=== PATIENT | female | born 1955 | race Caucasian/White ===

== ENCOUNTER → 2024-03-10 13:50 | Outpatient (CLI) | payer MEDICARE, SELFPAY ==
[2024-03-10 14:52] LABS: Add Manual Diff / Slide Review NO; Basophils Absolute Auto 100 /uL (0-100); Basophils Percent Auto 1.4 % (0-2); Eosinophils Absolute Auto 300 /uL (0-450); Eosinophils Percent Auto 4.2 % (2-4); Hemoglobin 15.1 g/dL (12.0-16.0); Lymphocytes Absolute Auto 1900 /uL (1100-4500); Lymphocytes Percent Auto 23.4 % (25-40); Mean Corpuscular HGB Conc 34.2 % (30-36); Mean Corpuscular Hemoglobin 32.1 PG (26-34); Mean Corpuscular Volume 93.9 fL (80-100); Monocytes Absolute Auto 500 /uL (0-900); Monocytes Percent Auto 6.2 % (3-14); Neutrophils Absolute Auto 5200 /uL (1500-7000); Neutrophils Percent Auto 64.8 % (50-75); Platelet Count 334 X10^3/uL (150-400); Red Blood Cell Count 4.69 X10^6/uL (4.0-5.2); Red Cell Distribution Width 13.4 % (11.6-14.8)
[2024-03-10 15:17] LABS: Alanine Aminotransferase 23 IU/L (<35); Albumin 4.7 g/dL (3.5-5.0); Albumin Globulin Ratio 1.8 (1.0-2.8); Alkaline Phosphatase 88 U/L (38-126); Aspartate Aminotransferase 22 IU/L (14-36); Bilirubin Total 0.7 mg/dL (0.2-1.3); Blood Urea Nitrogen 11 mg/dL (7-17); Calcium 9.7 mg/dL (8.4-10.2); Carbon Dioxide 33 mmol/L (22-32); Chloride 106 mmol/L (98-107); Cholesterol 210 mg/dL (140-199); Estimated Glomerular Filt Rate > 60 mL/min (>60); Globulin 2.6 g/dL (1.7-4.1); Glucose 98 mg/dL (80-110); HDL Cholesterol 88 mg/dL (40-60); HEMOLYSIS < 15 (0-50); LDL Cholesterol Calculated 97 mg/dL (<100); Potassium 3.6 mmol/L (3.4-5.1); Sodium 142 mmol/L (137-145); Total Protein 7.3 g/dL (6.3-8.2); Triglycerides 127 mg/dL (35-150)
[2024-03-10 15:48] LABS: TSH w/ Reflex to FT4 1.94 uIU/mL (0.47-4.68)
== END ==
LOC: LAB 13:51
PROVIDERS: Family Provider Family Medicine; PCP Family Medicine; Referring Provider Family Medicine; Visit Provider Family Medicine
DX: I10 Essential (primary) hypertension (principal); J44.9 Chronic obstructive pulmonary disease, unspecified
CPT/HCPCS: 36415; 80053; 80061; 84443; 85025

== ENCOUNTER → 2024-04-02 14:47 | Outpatient (CLI) | payer MEDICARE, SELFPAY ==
--- NOTE | 2024-04-02 14:48 | DI.CT.S_ITS ---
PROCEDURE: CT LUNG LOW DOSE SCREENING INDICATIONS: nicotine dependence TECHNIQUE: Noncontrast 2.0-2.5 mm thick sections acquired from the pulmonary apices to the posterior costophrenic angles. 7 mm thick axial MIP, and 5 mm coronal and sagittal reformats were then acquired. For radiation dose reduction, the following was used: automated exposure control, adjustment of mA and/or kV according to patient size. COMPARISON: None. FINDINGS: Image quality: Diagnostic. Lower Neck: No enlarged lymph nodes. Thyroid: No thyroid nodules which require sonographic follow up, per consensus guidelines. Axillae: No enlarged lymph nodes. Chest Wall: Unremarkable. Bones: Unremarkable. Lungs and Pleura: No pneumothorax or pleural effusions. -Right upper lobe pulmonary nodule measuring 0.6 cm, (3/64). -Right middle lobe pulmonary nodule measuring 0.6 cm, (3/185). -Right lower lobe pulmonary nodule measuring 0.6 cm, (3/179). -Left upper lobe pulmonary nodule measuring 0.6 cm, (3/189). -Left upper lobe ground-glass pulmonary nodule measuring 0.9 cm, (3/163). Streaky opacity in the right middle lobe. Central airways are clear. Moderate emphysematous change. Heart: Heart size is normal. Moderate coronary artery calcifications. No pericardial effusion. Thoracic Vessels: The aorta and pulmonary arteries demonstrate normal size. Mediastinum and Josefina: No enlarged lymph nodes. Esophagus: No wall thickening. No hiatal hernia. Upper Abdomen: Visualized upper abdomen solid organs and bowel loops appear normal. IMPRESSION: Multiple pulmonary nodules measuring up to 0.6 cm mean diameter. LUNG-RADS 3; recommend follow-up CT chest in 6 months. Clinically Significant Non-pulmonary Findings: Moderate coronary artery calcifications. Dictated by: Surjit Nielsen M.D. on 04/02/2024 at 16:20 Approved by: Surjit Nielsen M.D. on 04/02/2024 at 16:28
--- NOTE | 2024-04-02 14:48 | DI.MG.S_ITS ---
BILATERAL DIGITAL SCREENING MAMMOGRAM 3D/2D WITH CAD: 04/02/2024 CLINICAL: Routine screening. Comparison is made to exam dated: 05/23/2013 mammogram - . Both breasts are almost entirely fatty (category a/<25% glandular tissue). Current study was also evaluated with a Computer Aided Detection (CAD) system. No significant masses, calcifications, or other findings are seen in either breast. There has been no significant interval change. IMPRESSION: NEGATIVE There is no mammographic evidence of malignancy. A 1 year screening mammogram is recommended. Based on the Tyrer Cuzick model (a risk assessment model) the patient's lifetime risk is 1.9% and her 10 year risk is 1.0%. According to the ACR, ACS, and NCCN guidelines, an annual breast MRI exam along with mammogram is recommended if the patient's lifetime risk is 20% or greater. This exam was interpreted at Station ID: [id number]. NOTE: For mammograms, a report in lay terms will be sent to the patient. Approximately 15% of breast malignancies will not be visualized mammographically. In the management of a palpable breast mass, a negative mammogram must not discourage biopsy of a clinically suspicious lesion. Electronically Signed By: Vickie vinson/reyna:04/03/2024 13:10:00 letter sent: Normal Exam ACR BI-RADS Category 1: Negative [id number]
== END ==
LOC: MAMMO 14:48
PROVIDERS: Family Provider Family Medicine; PCP Family Medicine; Referring Provider Family Medicine; Visit Provider Family Medicine
DX: Z12.31 Encounter for screening mammogram for malignant neoplasm of breast (principal); F17.210 Nicotine dependence, cigarettes, uncomplicated; R91.8 Other nonspecific abnormal finding of lung field; I25.10 Atherosclerotic heart disease of native coronary artery without angina pectoris
CPT/HCPCS: 71271; 77063; 77067

== ENCOUNTER → 2025-03-15 11:21 | Outpatient (CLI) | payer MEDICARE, SELFPAY ==
--- NOTE | 2025-03-15 11:24 | DI.CT.S_ITS ---
PROCEDURE: CT CHEST WO CON INDICATIONS: 6 month f/u eval lung nodule and emphysema TECHNIQUE: Noncontrast 5 mm thick sections acquired from the pulmonary apices to the posterior costophrenic angles. 1 mm lung window, 5 mm thick coronal and sagittal and 7 mm axial MIP reformats were then acquired. For radiation dose reduction, the following was used: automated exposure control, adjustment of mA and/or kV according to patient size. COMPARISON: [facility], CT, CT LUNG LOW DOSE SCREENING, 04/02/2024, 15:32. FINDINGS: Image quality: Diagnostic. Lower Neck: No enlarged lymph nodes. Thyroid: No thyroid nodules which require sonographic follow up, per consensus guidelines. Axillae: No enlarged lymph nodes. Chest Wall: Unremarkable. Bones: Unremarkable. Lungs and Pleura: No pneumothorax or pleural effusions. Severe emphysematous change. Mild opacity in the right middle lobe is resolved. Several areas of distal mucus airway plugging. No new or enlarging pulmonary nodules. Several small pulmonary nodules. For example: -Right lower lobe 0.6 cm, (3/177), unchanged. -Left upper 0.6 cm, (3/177), unchanged. -Left upper lobe ground-glass pulmonary nodule is resolved. Heart: Heart size is normal. Moderate coronary artery calcifications. No pericardial effusion. Thoracic Vessels: The aorta and pulmonary arteries demonstrate normal size. Mediastinum and Josefina: No enlarged lymph nodes. Esophagus: No wall thickening. No hiatal hernia. Upper Abdomen: Visualized upper abdomen solid organs and bowel loops appear normal. IMPRESSION: 1. No new or enlarging pulmonary nodules. A few small pulmonary nodules measuring up to 0.6 cm. Lung rads 2. -Recommend follow-up lung cancer screening chest CT in 12 months. 2. Mild opacity in the right middle lobe is resolved. Left upper lobe ground-glass pulmonary nodule is resolved. 3. No adenopathy seen. Dictated by: Surjit Nielsen M.D. on 03/15/2025 at 14:49 Approved by: Surjit Nielsen M.D. on 03/15/2025 at 15:01
== END ==
PROVIDERS: Family Provider Family Medicine; PCP Family Medicine; Referring Provider Family Medicine; Visit Provider Family Medicine
DX: J43.1 Panlobular emphysema (principal); R91.8 Other nonspecific abnormal finding of lung field
CPT/HCPCS: 71250

== ENCOUNTER → 2025-05-18 11:42 | Outpatient (CLI) | payer MEDICARE, SELFPAY ==
[2025-05-18 12:37] LABS: Add Manual Diff / Slide Review NO; Basophils Absolute Auto 100 /uL (0-100); Basophils Percent Auto 0.9 % (0-2); Eosinophils Absolute Auto 200 /uL (0-450); Eosinophils Percent Auto 3.9 % (2-4); Hematocrit 43.5 % (36-46); Hemoglobin 14.9 g/dL (12.0-16.0); Lymphocytes Absolute Auto 1400 /uL (1100-4500); Mean Corpuscular HGB Conc 34.3 % (30-36); Mean Corpuscular Hemoglobin 32.2 PG (26-34); Mean Corpuscular Volume 94.1 fL (80-100); Monocytes Absolute Auto 400 /uL (0-900); Monocytes Percent Auto 6.3 % (3-14); Neutrophils Absolute Auto 3600 /uL (1500-7000); Neutrophils Percent Auto 63.9 % (50-75); Platelet Count 340 X10^3/uL (150-400); Red Blood Cell Count 4.62 X10^6/uL (4.0-5.2); Red Cell Distribution Width 12.7 % (11.6-14.8); White Blood Cell Count 5.6 X10^3/uL (4.5-11.0)
[2025-05-18 13:22] LABS: Alanine Aminotransferase 34 IU/L (<35); Albumin 4.7 g/dL (3.5-5.0); Albumin Globulin Ratio 1.9 (1.0-2.8); Alkaline Phosphatase 76 U/L (38-126); Aspartate Aminotransferase 31 IU/L (14-36); BUN Creatinine Ratio 23.2 (6-22); Bilirubin Total 0.6 mg/dL (0.2-1.3); Blood Urea Nitrogen 23 mg/dL (7-17); Calcium 9.8 mg/dL (8.4-10.2); Carbon Dioxide 29 mmol/L (22-32); Chloride 99 mmol/L (98-107); Cholesterol 231 mg/dL (140-199); Estimated Glomerular Filt Rate > 60 mL/min (>60); Globulin 2.5 g/dL (1.7-4.1); Glucose 102 mg/dL (70-99); HDL Cholesterol 80 mg/dL (40-60); HEMOLYSIS < 15 (0-50); LDL Cholesterol Calculated 104 mg/dL (<100); Potassium 4.9 mmol/L (3.4-5.1); Sodium 136 mmol/L (137-145); Total Protein 7.2 g/dL (6.3-8.2); Triglycerides 236 mg/dL (35-150)
[2025-05-18 13:48] LABS: TSH w/ Reflex to FT4 0.17 uIU/mL (0.47-4.68)
[2025-05-18 14:34] LABS: Free T4, Direct Thyroxine 1.05 ng/dL (0.78-2.19)
== END ==
PROVIDERS: PCP Family Medicine; Referring Provider Family Medicine; Visit Provider Family Medicine
DX: Z00.00 Encounter for general adult medical examination without abnormal findings (principal); J43.2 Centrilobular emphysema; I10 Essential (primary) hypertension; R91.8 Other nonspecific abnormal finding of lung field; F17.200 Nicotine dependence, unspecified, uncomplicated
CPT/HCPCS: 36415; 80053; 80061; 84439; 84443; 85025

== ENCOUNTER 2025-09-15 11:07 | Observation (INO) | payer MEDICARE, SELFPAY ==
[2025-09-15] VITALS (11 sets, daily range): BP systolic 126–151; BP diastolic 67–96; PULSE 86–131; RESP 15–28; TEMP 36.5–36.6; O2SAT 80–98; BMI 25.7
--- NOTE | 2025-09-15 11:15 | EKG_ITS ---
[address] [address] Test Date: 2025-09-15 Pat Name: Bing Huntley Department: Room: Gender: Female Manager Logistic: SHAKIRA : 1955 Requested By: Order Number: [id number] Reading MD: Javier Parsons MD Measurements Intervals [place] Rate: 91 P: 74 [place]: 132 QRS: -50 QRSD: 74 T: 28 QT: 370 QTc: 455 Interpretive Statements Normal sinus rhythm Low voltage QRS Left anterior fascicular block Possible Lateral infarct , age undetermined Electronically Signed On 09-15-2025 16:44:38 PDT by Javier Parsons MD
--- NOTE | 2025-09-15 11:15 | DI.RAD.S_ITS ---
PROCEDURE: XR CHEST 1V INDICATIONS: Shortness of breath TECHNIQUE: One view of the chest was acquired. COMPARISON: None. FINDINGS: Surgical changes and devices: None. Lungs and pleura: Lungs are clear. No pleural effusions or pneumothorax. Mediastinum: Mediastinal contours appear normal. Heart size is normal. Bones and chest wall: No suspicious bony lesions. Overlying soft tissues appear unremarkable. IMPRESSION: No acute cardiopulmonary abnormality is seen. Dictated by: Teto Villareal M.D. on 09/15/2025 at 11:32 Approved by: Teto Villareal M.D. on 09/15/2025 at 11:32
--- NOTE | 2025-09-15 11:36 | ED_ITS ---
HPI - SOB/Dyspnea General Chief Complaint: Shortness of Breath/Dyspnea Stated Complaint: Low O2 Time Seen by Provider: 09/15/25 11:35 Source: patient Mode of arrival: Wheelchair History of Present Illness HPI Narrative: Patient is a 70-year-old female history of hypertension COPD, tobacco use presenting to day with sinus pain. She reports that she has had sinus pain over the last 4 days she feels like he is having drainage. She actually is found to be hypoxic 82% on room air denies any chest pain or shortness of breath. Although she does report that she might have some mild shortness of breath with the exertion. She denies any fever no real chest pain. She took some albuterol inhaler last night none this morning. Related Data Previous Rx's ?Medication ?Instructions ?Recorded amlodipine 2.5 mg tablet 2.5 mg PO DAILY #90 tabs 07/20 albuterol sulfate 90 mcg/actuation 1 puff PO 4XD PRN f or wheezing #18 08/13/25 aerosol inhaler (Ventolin HFA) grams fluticasone fur. 200 mcg-umeclid 1 inh inhalation ARCHIE Y #60 ea 08/13/25 62.5 mcg-vilant 25 mcg inhalat.powder (Trelegy Ellipta) azithromycin 250 mg tablet See Rx Instructions PO .COM PLEX #6 09/15/25 tabs prednisone 20 mg tablet 40 mg (2 x 20 mg) PO DAILY # 10 tabs 09/15/25 Allergies Allergy/AdvReac Type Severity Reaction Status Date / Time blue dye (BLUE DYE) Allergy Severe Burning of Verified 09/15/25 11:15 throat and head to toe codeine (CODEINE) AdvReac Severe Hives Verified 09/15/25 11:15 Patient History Medical History (Updated 09/15/25 @ 13:54 by Shira Zapata DO) Centrilobular emphysema Multiple lung nodules on CT Panlobular emphysema Tobacco use disorder Preventative health care COPD (chronic obstructive pulmonary disease) Hypertension Family History Child Age: 51 Hypertension Father Heart disease Mother Age: 92 Dementia Sister Age: 65 [place] (myocardial infarction) Social History Smoking Status: Current every day smoker Smoking Status: Current every day smoker Exam Initial Vital Signs Initial Vital Signs: Vital Signs Pulse Rate 86 09/15/25 11:13 Pulse Oximetry 80 L 09/15/25 11:13 GENERAL: Alert 70-year-old female and in no acute distress. HEENT: Head atraumatic mild tenderness left zygomatic arch no obvious swelling or erythema neck is supple CARDIOVASCULAR: Regular rate and rhythm without murmurs, rubs or gallops. RESPIRATORY: Decreased breath sounds bilaterally no wheezing speaks in full sentences without difficulty ABDOMEN: Soft, nontender. Normoactive bowel sounds all 4 quadrants. No guarding or rebound. EXTREMITIES: Normal range of motion, no clubbing or edema. Neurovascularly intact NEUROLOGICAL: Alert and oriented x4.Normal gait and speech. Cranial nerves II through XII grossly intact. SKIN: Warm, dry, no laceration, no petechiae, no rashes or lesions. Course Orders Ordered: ED Orders 09/15/25 11:15 XR chest 1V Stat EKG-12 Lead Stat Measure peak expiratory flow STAT RT Consult Eval and Treat STAT 09/15/25 11:40 Complete Blood Count AUTO DIFF Stat Comprehensive Metabolic Panel Stat Lactate (Lactic Acid) Stat NT-proBNP (BNP-Adult 18+) Stat Prothrombin Time INR Stat Troponin I Stat Albuterol/Ipratropium (Albuterol/Ipratropium 3 Ml Ampul) 3 ml INH Q1H PRN PRN Reason: Shortness Of Breath Last Admin: 09/15/25 14:21 Dose: 3 ml Documented By: Admin: 09/15/25 13:33 Dose: 3 ml Documented By: Admin: 09/15/25 12:32 Dose: 3 ml Documented By: ESTEFANI Discontinued Medications Albuterol (Albuterol 2.5 Mg/3 Ml Neb (Adult)) 2.5 mg INH NOW ONE Stop: 09/15/25 14:07 Albuterol/Ipratropium (Albuterol/Ipratropium 3 Ml Ampul) 3 ml INH NOW ONE Stop: 09/15/25 11:37 Last Admin: 09/15/25 11:56 Dose: 3 ml Documented By: ESTEFANI Methylprednisolone (Methylprednisolone Succ 125 Mg/2 Ml Vial) 125 mg IV NOW ONE Stop: 09/15/25 11:37 Last Admin: 09/15/25 12:39 Dose: 125 mg Documented By: FAISAL Vital Signs Vital signs: Vital Signs - 8 hr 09/15/25 11:13 09/15/25 11:15 09/15/25 11:15 Temperature 98 F Pulse Rate 86 88 Respiratory Rate 28 H Blood Pressure 151/96 H 151/96 H Pulse Oximetry 80 L 82 L Oxygen Delivery Method Room Air 09/15/25 11:15 09/15/25 11:30 09/15/25 11:32 Temperature Pulse Rate 101 H 104 H Respiratory Rate 15 23 Blood Pressure 136/80 Pulse Oximetry 85 L 93 Oxygen Delivery Method 09/15/25 11:32 09/15/25 12:00 09/15/25 12:01 Temperature Pulse Rate 107 H 100 H Respiratory Rate 24 Blood Pressure 137/92 H Pulse Oximetry 95 98 Oxygen Delivery Method 09/15/25 12:01 09/15/25 12:30 09/15/25 12:30 Temperature Pulse Rate 101 H 103 H Respiratory Rate 25 H Blood Pressure 149/86 H Pulse Oximetry 98 91 Oxygen Delivery Method MDM - SOB/Dyspnea Lab Data 09/15/25 11:40 09/15/25 11:40 Labs: Lab Results 09/15/25 Range/Units 11:40 WBC 6.5 (4.5-11.0) X10^3/uL RBC 4.60 (4.0-5.2) X10^6/uL Hgb 14.7 (12.0-16.0) g/dL Hct 43.0 (36-46) % MCV 93.5 (80-100) fL MCH 32.0 (26-34) PG MCHC 34.2 (30-36) % RDW 12.8 (11.6-14.8) % Plt Count 347 (150-400) X10^3/uL Neut % (Auto) 70.5 (50-75) % Lymph % (Auto) 18.6 L (25-40) % [place] % (Auto) 5.6 (3-14) % Eos % (Auto) 4.7 H (2-4) % Baso % (Auto) 0.6 (0-2) % Neut # (Auto) 4600 (7131-4507) /uL Lymph # (Auto) 1200 (6195-9413) /uL [place] # (Auto) 400 (0-900) /uL Eos # (Auto) 300 (0-450) /uL Baso # (Auto) 0 (0-100) /uL PT 11.1 (9.4-12.5) SECONDS INR 1.0 (0.9-1.3) Sodium 138 (137-145) mmol/L Potassium 4.2 (3.4-5.1) mmol/L Chloride 95 L (98-107) mmol/L Carbon Dioxide 33 H (22-32) mmol/L BUN 16 (7-17) mg/dL Creatinine 0.83 (0.52-1.04) mg/dL Estimated GFR > 60 (>60) mL/min BUN/Creatinine Ratio 19.3 (6-22) Glucose 105 H (70-99) mg/dL Lactate 0.7 (0.7-2.1) mmol/L Calcium 9.5 (8.4-10.2) mg/dL Total Bilirubin 0.4 (0.2-1.3) mg/dL AST 29 (14-36) IU/L ALT 29 (<35) IU/L Alkaline Phosphatase 84 (38-126) U/L Troponin I < 0.012 (0.01-0.034) ng/mL NT-Pro-B Natriuret Pep 58 (<125) pg/mL Total Protein 7.7 (6.3-8.2) g/dL Albumin 4.7 (3.5-5.0) g/dL Globulin 3.0 (1.7-4.1) g/dL Albumin/Globulin Ratio 1.6 (1.0-2.8) Imaging Data Chest x-ray: Radiologist's Impression: PROCEDURE: XR CHEST 1V INDICATIONS: Shortness of breath TECHNIQUE: One view of the chest was acquired. COMPARISON: None. FINDINGS: Surgical changes and devices: None. Lungs and pleura: Lungs are clear. No pleural effusions or pneumothorax. Mediastinum: Mediastinal contours appear normal. Heart size is normal. Bones and chest wall: No suspicious bony lesions. Overlying soft tissues appear unremarkable. IMPRESSION: No acute cardiopulmonary abnormality is seen. Dictated by: Teto Villareal M.D. on 09/15/2025 at 11:32 ECG Data Attestation: I personally reviewed and interpreted this ECG as follows: Interpretation: Sinus rhythm rate 91 RI interval 132 QRS 74 QTC 455 artifact noted no significant ST changes MDM Narrative Medical decision making narrative: ANAI CC: Sinus drainage Complicating co-morbidities: COPD Data collected from: Patient Medical records reviewed: Seen by the walk-in clinic today where she was 70-81% Differential considered: COPD exacerbation CHF pneumonia viral illness Exam documented above, pertinent findings include: Decreased breath sounds bilaterally speaks in full sentences minimal tenderness over right zygomatic arch without significant swelling or erythema Lab Test results independently reviewed as above. Pertinent findings: CBC the leukocytosis no anemia CMP electrolytes within normal limits no ABBE Troponin negative BNP 58 Bilirubin liver enzymes within normal limits Independently reviewed EKG as above Sinus rhythm no ischemia Imaging studies independently reviewed: Chest x-ray no acute cardiopulmonary process Consultations: Dr. Diaz Treatments: Albuterol Solu-Medrol Re-evaluations: Patient is off oxygen breathing better speaks in full sentences Discussion: Patient is 70-year-old female history of COPD presenting today with sinus pain but sent over from the walk-in clinic concern for hypoxia. She is hypoxic breath sounds did open up with breathing treatments. She ambulated to the restroom became tachycardic and hypoxic she required breathing treatment afterwards. She is now back on 1 L of O2. Attempted again after albuterol respiratory evaluated her her O2 sat dropped to 85% she tachycardic. She does not have home oxygen. Discharge Plan Departure Patient Disposition: Admitted as Observation Clinical Impression: COPD exacerbation
[2025-09-15 11:53] LABS: Add Manual Diff / Slide Review NO; Hematocrit 43.0 % (36-46); Hemoglobin 14.7 g/dL (12.0-16.0); Lymphocytes Absolute Auto 1200 /uL (1100-4500); Mean Corpuscular HGB Conc 34.2 % (30-36); Mean Corpuscular Hemoglobin 32.0 PG (26-34); Mean Corpuscular Volume 93.5 fL (80-100); Platelet Count 347 X10^3/uL (150-400)
[2025-09-15] MEDS: ALBUTEROL/IPRATROPIUM 3 ML AMPUL INH ×4 (11:56→14:21)
[2025-09-15 12:02] LABS: INR 1.0 (0.9-1.3); Prothrombin Time 11.1 SECONDS (9.4-12.5)
[2025-09-15 12:07] LABS: HEMOLYSIS < 15 (0-50)
[2025-09-15 12:13] LABS: Lactate (Lactic Acid) 0.7 mmol/L (0.7-2.1)
[2025-09-15 12:23] LABS: NT-proBNP (BNP-Adult 18+) 58 pg/mL (<125); Troponin I < 0.012 ng/mL (0.01-0.034)
[2025-09-15 12:33] LABS: Alanine Aminotransferase 29 IU/L (<35); Albumin 4.7 g/dL (3.5-5.0); Albumin Globulin Ratio 1.6 (1.0-2.8); Alkaline Phosphatase 84 U/L (38-126); Blood Urea Nitrogen 16 mg/dL (7-17); Calcium 9.5 mg/dL (8.4-10.2); Carbon Dioxide 33 mmol/L (22-32); Chloride 95 mmol/L (98-107); Estimated Glomerular Filt Rate > 60 mL/min (>60); Globulin 3.0 g/dL (1.7-4.1); Glucose 105 mg/dL (70-99); Potassium 4.2 mmol/L (3.4-5.1); Sodium 138 mmol/L (137-145); Total Protein 7.7 g/dL (6.3-8.2)
[2025-09-15] MEDS: methylPREDNISolone succ 125 MG/2 ML VIAL IV (12:39)
--- NOTE | 2025-09-15 14:06 | PC.NURSE ---
Ambulated patient to bathroom on no O2, SP02 was 85%.
--- NOTE | 2025-09-15 17:49 | P.HP_ITS ---
History of Present Illness History of Present Illness Date Patient Seen: 09/15/25 Chief complaint: Low O2 Narrative: Chief complaint: Shortness for breath secondary COPD with exacerbation and hypoxic respiratory failure History of present illness: 09/15: 7-year-old female former smoker had increasing sinus congestion cough and dyspnea with exertion she finally came to the emergency room for evaluation. She has a history of central lobar emphysema and COPD in his followed by Dr. Javier Toro she also sees Dr. Yadi Barton pulmonology in his office. She has still a current everyday smoker In the emergency department: She actually is found to be hypoxic 82% on room air denies any chest pain or shortness of breath. Although she does report that she might have some mild shortness of breath with the exertion. She denies any fever no real chest pain. She took some albuterol inhaler last night none this morning. Past medical history: entrilobular emphysema Multiple lung nodules on CT Panlobular emphysema Tobacco use disorder COPD (chronic obstructive pulmonary disease) Hypertension Review of systems: No chest pains palpitations No nausea vomiting diarrhea No urinary symptom No paresthesia paresis Physical exam: Elderly female nervous appearing using accessory muscles to breathe and moderately labored respirations HEENT unremarkable Lungs with very distant breath sounds practically inaudible very very short respiratory phases Abdomen benign Extremities no edema For objective laboratory and imaging studies please see the bottom of the note Assessment and plan: COPD with emphysema currently smoking with exacerbation and acute hypoxic respiratory failure * Solu-Medrol 60 mg IV q.12 * Azithromycin * DuoNeb DVT prophylaxis: * Not indicated patient is ambulatory Code status: * Full code Disposition: * Observation expect 24-48 hours * May need home oxygen Time based billing: * 55 minutes were involved evaluation of the patient including [id number] evaluation review of previous office and hospital records review of objective laboratory and imaging communication with emergency provider [facility] Medical History (Updated 09/15/25 @ 13:54 by Shira Zapata DO) Centrilobular emphysema Multiple lung nodules on CT Panlobular emphysema Tobacco use disorder Preventative health care COPD (chronic obstructive pulmonary disease) Hypertension Family History Child Age: 51 Hypertension Father Heart disease Mother Age: 92 Dementia Sister Age: 65 [place] (myocardial infarction) Social History Smoking Status: Current every day smoker Meds Home Medications and Allergies Home Medications ?Medication ?Instructions ?Recorded ?Confirmed ?Type amlodipine 2.5 mg tablet 2.5 mg PO DAILY #90 tabs 07/2009/15/25 Rx albuterol sulfate 90 mcg/actuation 1 puff PO 4XD PRN f or wheezing #18 08/13/25 09/15/25 Rx aerosol inhaler (Ventolin HFA) grams Allergies Allergy/AdvReac Type Severity Reaction Status Date / Time blue dye (BLUE DYE) Allergy Severe Burning of Verified 09/15/25 11:15 throat and head to toe codeine (CODEINE) AdvReac Severe Hives Verified 09/15/25 11:15 Exam Vital Signs (past 8 hours): - 09/15/25 11:13 09/15/25 11:15 09/15/25 11:15 Temperature 98 F Pulse Rate 86 88 Respiratory Rate 28 H Blood Pressure 151/96 H 151/96 H Pulse Oximetry 80 L 82 L Oxygen Delivery Method Room Air 09/15/25 11:15 09/15/25 11:30 09/15/25 11:32 Temperature Pulse Rate 101 H 104 H Respiratory Rate 15 23 Blood Pressure 136/80 Pulse Oximetry 85 L 93 Oxygen Delivery Method 09/15/25 11:32 09/15/25 12:00 09/15/25 12:01 Temperature Pulse Rate 107 H 100 H Respiratory Rate 24 Blood Pressure 137/92 H Pulse Oximetry 95 98 Oxygen Delivery Method 09/15/25 12:01 09/15/25 12:30 09/15/25 12:30 Temperature Pulse Rate 101 H 103 H Respiratory Rate 25 H Blood Pressure 149/86 H Pulse Oximetry 98 91 Oxygen Delivery Method 09/15/25 16:13 09/15/25 16:47 Temperature 97.8 F Pulse Rate 116 H Respiratory Rate 18 Blood Pressure 139/87 Pulse Oximetry 91 Oxygen Delivery Method Nasal Cannula Oxygen Delivery Method Nasal Cannula Objective Labs 09/15/25 11:40 09/15/25 11:40 Labs: Laboratory Results - last 24 hr 09/15/25 11:40 WBC 6.5 RBC 4.60 Hgb 14.7 Hct 43.0 MCV 93.5 MCH 32.0 MCHC 34.2 RDW 12.8 Plt Count 347 Neut % (Auto) 70.5 Lymph % (Auto) 18.6 L [place] % (Auto) 5.6 Eos % (Auto) 4.7 H Baso % (Auto) 0.6 Neut # (Auto) 4600 Lymph # (Auto) 1200 [place] # (Auto) 400 Eos # (Auto) 300 Baso # (Auto) 0 PT 11.1 INR 1.0 Sodium 138 Potassium 4.2 Chloride 95 L Carbon Dioxide 33 H BUN 16 Creatinine 0.83 Estimated GFR > 60 BUN/Creatinine Ratio 19.3 Glucose 105 H Lactate 0.7 Calcium 9.5 Total Bilirubin 0.4 AST 29 ALT 29 Alkaline Phosphatase 84 Troponin I < 0.012 NT-Pro-B Natriuret Pep 58 Total Protein 7.7 Albumin 4.7 Globulin 3.0 Albumin/Globulin Ratio 1.6 Assessment & Plan Time-Based Coding :: [TOTAL MINUTES] spent with patient and on the chart (including review of chart, obtaining history, exam, reviewing outside data, placing orders, documenting exam and treatment plan, and counseling patient) on [DATE].
[2025-09-15] MEDS: ALBUTEROL 2.5 MG/3 ML NEB (ADULT) INH ×2 (19:08→22:07)
[2025-09-15] MEDS: BUDESONIDE 0.5 MG/2 ML NEB INH (19:08)
--- NOTE | 2025-09-15 20:32 | EKG_ITS ---
[address] [address] Test Date: 2025-09-15 Pat Name: Bing Huntley Department: Room: 214 Gender: Female Direct Service Provider: PAYTON : 1955 Requested By: Order Number: [id number] Reading MD: Javier Parsons MD Measurements Intervals [place] Rate: 125 P: 60 SC: 146 QRS: -52 QRSD: 74 T: 42 QT: 324 QTc: 467 Interpretive Statements Sinus tachycardia Low voltage QRS Left anterior fascicular block Inferior infarct , age undetermined NO SIGNIFICANT CHANGE FROM PRIOR TRACING Electronically Signed On 09-16-2025 6:47:20 PDT by Javier Parsons MD
[2025-09-15] MEDS: MELATONIN 3 MG TABLET 6 MG PO (23:07)
[2025-09-15] MEDS: ZOLPIDEM 5 MG TABLET PO (23:08)
[2025-09-15] MEDS: methylPREDNISolone succ 125 MG/2 ML VIAL 60 MG IV (23:39)
[2025-09-16 08:18] VITALS: BP 118/73; PULSE 118; RESP 20; TEMP 36.6; O2SAT 96
[2025-09-16] MEDS: BUDESONIDE 0.5 MG/2 ML NEB INH (08:40)
[2025-09-16] MEDS: ALBUTEROL 2.5 MG/3 ML NEB (ADULT) INH ×2 (08:40→12:14)
[2025-09-16 08:43] VITALS: PULSE 88; RESP 18; O2SAT 92
[2025-09-16] MEDS: ENOXAPARIN 40 MG/0.4 ML SYRINGE SUBCUT (09:44)
--- NOTE | 2025-09-16 11:28 | PM.DS.1 ---
History of Present Illness History of Present Illness Date Patient Seen: 09/16/25 Chief complaint: Low O2 Narrative: Chief complaint: Shortness for breath secondary COPD with exacerbation and hypoxic respiratory failure History of present illness: 09/15: 7-year-old female former smoker had increasing sinus congestion cough and dyspnea with exertion she finally came to the emergency room for evaluation. She has a history of central lobar emphysema and COPD in his followed by Dr. Javier Toro she also sees Dr. Yadi Barton pulmonology in his office. She has still a current everyday smoker In the emergency department: She actually is found to be hypoxic 82% on room air denies any chest pain or shortness of breath. Although she does report that she might have some mild shortness of breath with the exertion. She denies any fever no real chest pain. She took some albuterol inhaler last night none this morning. Past medical history: centrilobular emphysema Multiple lung nodules on CT Panlobular emphysema Tobacco use disorder COPD (chronic obstructive pulmonary disease) Hypertension Review of systems: No chest pains palpitations No nausea vomiting diarrhea No urinary symptom No paresthesia paresis Physical exam: Elderly female nervous appearing using accessory muscles to breathe and moderately labored respirations HEENT unremarkable Lungs with very distant breath sounds practically inaudible very very short respiratory phases Abdomen benign Extremities no edema For objective laboratory and imaging studies please see the bottom of the note Assessment and plan: COPD with emphysema currently smoking with exacerbation and acute hypoxic respiratory failure Azithromycin and prednisone DVT prophylaxis: Not indicated patient is ambulatory Code status: Full code Disposition: Discharge to home Does not qualify for home oxygen Time based billin minutes were involved evaluation of the patient including [id number] evaluation review of previous office and hospital records review of objective laboratory and imaging communication with emergency provider Discharge Providers Provider Date of admission: 09/15/25 15:38 Discharge Date: 09/16/25 Primary care physician: Helder Toro, DO Discharge provider: Nomi Diaz MD Exam Vital Signs (past 8 hours): - 09/16/25 08:18 09/16/25 08:43 Temperature 97.9 F Pulse Rate 118 H 88 Respiratory Rate 20 18 Blood Pressure 118/73 Pulse Oximetry 96 92 Oxygen Delivery Method Nasal Cannula Oxygen Flow Rate 1 Fraction of Inspired Oxygen 24 Fraction of Inspired Oxygen 24 SaO2/FiO2 Ratio 387 Oxygen Delivery Method Nasal Cannula Oxygen Flow Rate 1 Objective Labs 09/15/25 11:40 09/15/25 11:40 Labs: Laboratory Results - last 24 hr 09/15/25 11:40 WBC 6.5 RBC 4.60 Hgb 14.7 Hct 43.0 MCV 93.5 MCH 32.0 MCHC 34.2 RDW 12.8 Plt Count 347 Neut % (Auto) 70.5 Lymph % (Auto) 18.6 L [place] % (Auto) 5.6 Eos % (Auto) 4.7 H Baso % (Auto) 0.6 Neut # (Auto) 4600 Lymph # (Auto) 1200 [place] # (Auto) 400 Eos # (Auto) 300 Baso # (Auto) 0 PT 11.1 INR 1.0 Sodium 138 Potassium 4.2 Chloride 95 L Carbon Dioxide 33 H BUN 16 Creatinine 0.83 Estimated GFR > 60 BUN/Creatinine Ratio 19.3 Glucose 105 H Lactate 0.7 Calcium 9.5 Total Bilirubin 0.4 AST 29 ALT 29 Alkaline Phosphatase 84 Troponin I < 0.012 NT-Pro-B Natriuret Pep 58 Total Protein 7.7 Albumin 4.7 Globulin 3.0 Albumin/Globulin Ratio 1.6 [facility] Medical History (Updated 09/15/25 @ 13:54 by Shira Zapata DO) Centrilobular emphysema Multiple lung nodules on CT Panlobular emphysema Tobacco use disorder Preventative health care COPD (chronic obstructive pulmonary disease) Hypertension Family History Child Age: 51 Hypertension Father Heart disease Mother Age: 92 Dementia Sister Age: 65 [place] (myocardial infarction) Social History Smoking Status: Current every day smoker Discharge Plan Discharge Plan Patient Disposition: Home Discharge orders & Medications Prescriptions: Continued amlodipine 2.5 mg tablet 2.5 mg PO DAILY Qty: 90 2RF albuterol sulfate [Ventolin HFA] 90 mcg/actuation HFA aerosol inhaler 1 puff PO 4XD PRN (Reason: for wheezing) Qty: 18 3RF Follow up/Referrals: Helder Toro DO [Primary Care Provider, Family Practice] Visit Report/Discharge Packet Instructions: Chronic Obstructive Pulmonary Disease Stand Alone Forms: Patient Portal/API, Stroke Signs & Symptoms Discharge Data Primary Care Provider: Helder Toro Attending Provider: Nomi Diaz Admit Date/Time: 09/15/25 15:38
--- NOTE | 2025-09-16 11:33 | CM.DANOTE ---
DCP Assessment note pt is a 70yo F admitted with COPD exacerbation. BONDERIZER reviewed EMR. per chart, remains on 1ltrs O2 at this time. none at baseline. per provider in morning rounds, if pt qualifies for home O2 pt can go home. if not, will remain here until can be weaned off O2. per RT note pt does not qualify for home O2. BONDERIZER met with pt in room. introduced self and role. pt lives indep at baseline with partner on [facility]. no DME/Hx HH. eager to return home. will plan to drive self home. denies any DCP needs at this time. P: home with partner and OP f/u as needed when weaned off O2. no identified barriers to safe dc home. will continue to follow as needed for DCP Coordination BJ Severino Discharge Planning/Care Management CM Discharge Assessment Start: 09/15/25 15:42 Freq: Status: Active Protocol: Document 09/16/25 11:32 (Rec: 09/16/25 11:33 [id number]) Discharge Planning Assessment Assigned Discharge [facility] Manager Provider Helder Toro [facility] DPOA/Assigned Julia Nelson Designee Name Contact Information [phone] Advance Directives? No Prior Living House Arrangements Household Members significant other Type of Drives own vehicle transporation used prior to admit Independent with ADL Yes 's Is patient alert and Yes oriented? Discharge Plan Home Referrals Initiated None needed Review Status In Process Please Provide Date 09/16/25 Initial DC Assessment Was Performed Next Review Type Continued Stay Review
[2025-09-16 12:17] VITALS: PULSE 120; RESP 16
--- NOTE | 2025-09-16 12:29 | PC.NURSE ---
Patient is discharging home, she passed home oxygenation trial with ambulating. She will not need o2 to go home on. Bs with wheezes in upper lobes.
[2025-09-16] MEDS: methylPREDNISolone succ 125 MG/2 ML VIAL 60 MG IV (12:39)
== END 2025-09-16 13:01 | disposition home or self-care (01) ==
LOC: ED 15:16 → AC 15:39
PROVIDERS: Admitting Provider Internal Medicine; Emergency Provider Emergency Medicine; PCP Family Medicine; Referring Provider Emergency Medicine; Visit Provider Internal Medicine
DX: J44.1 Chronic obstructive pulmonary disease with (acute) exacerbation (principal); J43.2 Centrilobular emphysema; J43.1 Panlobular emphysema; R09.02 Hypoxemia; I10 Essential (primary) hypertension; F17.210 Nicotine dependence, cigarettes, uncomplicated; R91.8 Other nonspecific abnormal finding of lung field
CPT/HCPCS: 36415; 71045; 80053; 83605; 83880; 84484; 85025; 85610; 93005; 93010; 94618; 94640; 96372; 96374; 96376; 99284; G0378; J1650; J2919; J7613

== ENCOUNTER → 2025-09-22 11:32 | Outpatient (CLI) | payer MEDICARE, SELFPAY ==
[2025-09-15 15:42] VITALS: BMI 25.7
[2025-09-22 12:39] LABS: Alanine Aminotransferase 25 IU/L (<35); Albumin 4.5 g/dL (3.5-5.0); Albumin Globulin Ratio 1.8 (1.0-2.8); Alkaline Phosphatase 71 U/L (38-126); Blood Urea Nitrogen 18 mg/dL (7-17); Calcium 9.4 mg/dL (8.4-10.2); Carbon Dioxide 33 mmol/L (22-32); Chloride 98 mmol/L (98-107); Estimated Glomerular Filt Rate > 60 mL/min (>60); Globulin 2.5 g/dL (1.7-4.1); Glucose 79 mg/dL (70-99); HEMOLYSIS < 15 (0-50); Magnesium 2.1 mg/dL (1.6-2.3); Potassium 3.6 mmol/L (3.4-5.1); Sodium 140 mmol/L (137-145); Total Protein 7.0 g/dL (6.3-8.2)
[2025-09-22 12:54] LABS: Free T4, Direct Thyroxine 0.96 ng/dL (0.78-2.19)
[2025-09-22 13:08] LABS: Thyroid Stimulating Hormone 0.027 uIU/mL (0.47-4.68)
== END ==
PROVIDERS: PCP Family Medicine; Referring Provider Family Medicine; Visit Provider Family Medicine
DX: R00.0 Tachycardia, unspecified (principal)
CPT/HCPCS: 36415; 80053; 83735; 84439; 84443